=== PATIENT | male | born 1945 | race Caucasian/White ===

== ENCOUNTER 2017-02-10 16:55 | Emergency (ER) | payer MEDICARE, MEDICAID ==
[~2017-02-10] VITALS: Ht 177.8 cm; Wt 98.0 kg
[~2017-02-10 16:55] MED LIST: FER300 PO; GLIPIZIDE2.5 M1 PO; LAC PO; METOPROLOL TART25 M1 PO; PROAIR HFA0.09 MG/A1 INH; PROTONIX20 MG PO; PULMICORT180 MCG/Ac INH; REG5 PO; ZIT250 PO; ZOC20 PO
[2017-02-10 17:16] VITALS: BP 95/55
== END 2017-02-10 19:30 | disposition left against medical advice (07) ==
LOC: ED 16:55
DX: Z53.21 Procedure and treatment not carried out due to patient leaving prior to being seen by health care provider (principal)

== ENCOUNTER 2017-07-16 17:17 | Inpatient (IN) | payer OTHER, MEDICAID ==
[~2017-07-16] VITALS: Ht 172.7 cm; Wt 81.4 kg
[2017-07-16 18:06] LABS: BASOPHIL % 0.4 % (0-2); PLATELET COUNT 267 x10^3mcL (130-400)
[2017-07-16 18:08] LABS: RED CELL DISTRIBUTION WIDTH 18.8 % (11.5-14.5)
[2017-07-16 18:21] LABS: ALBUMIN 2.6 g/dL (3.4-5.0); ALKALINE PHOSPHATASE 142 U/L (46-116); ALT/SGPT 11 U/L (16-63); AST/SGOT 6 U/L (15-37); BILIRUBIN TOTAL 0.29 mg/dL (0.20-1.00); CALCIUM 9.2 mg/dL (8.5-10.1); CARBON DIOXIDE 18.5 mmol/L (21-32); CHLORIDE SERUM 101 mmol/L (98-107); CREATININE SERUM 3.2 mg/dL (0.7-1.3); POTASSIUM SERUM 4.3 mmol/L (3.5-5.1); SODIUM SERUM 133 mmol/L (136-145); TOTAL PROTEIN, SERUM 7.9 g/dL (6.4-8.2)
[2017-07-16 18:22] LABS: GLUCOSE SERUM 613 mg/dL (74-106)
[2017-07-16] MEDS ORDERED: TERAZOSIN HCL10 MG PO (19:55)
[2017-07-16] MEDS ORDERED: GLUCOTROL10 MG PO (19:55)
[2017-07-16] MEDS ORDERED: ATORVASTATIN CA40 M1 PO (19:56)
[2017-07-16] MEDS ORDERED: HYDROCHLOROTH12.5 M2 PO (19:56)
[2017-07-16] MEDS ORDERED: COUMADIN1 MG PO (19:57)
[2017-07-16] MEDS ORDERED: CILOSTAZOL100 M1 PO (19:57)
[2017-07-16] MEDS ORDERED: ATENOLOL100 MG PO (19:58)
[2017-07-16] MEDS ORDERED: ASPIRIN ADULT L81 M5 PO (19:58)
[2017-07-16] MEDS ORDERED: VENTOLIN H0.09 MG/A1 (19:59)
[2017-07-16] MEDS ORDERED: PREDNISOLONE ACE5 ML OP (19:59)
[2017-07-16] MEDS ORDERED: ILEVRO1.7 ML (19:59)
[2017-07-16] MEDS ORDERED: VIGAMOX3 ML (20:00)
[2017-07-16 20:09] LABS: MAGNESIUM 2.1 mg/dL (1.8-2.4); PHOSPHOROUS 3.7 mg/dL (2.5-4.9)
[2017-07-16 20:12] LABS: CHOLESTEROL/HDL RATIO 5.7
[2017-07-16 20:17] LABS: T3 TOTAL 0.82 ng/mL
[2017-07-16 20:25] VITALS: BP 149/92
[2017-07-16 20:34] LABS: FREE T4 1.09 ng/dL (0.76-1.46); FREE THYROXINE INDEX 2.1 ug/dL (1.4-4.5); T4(THYROXINE) 6.1 ug/dL (4.7-13.3)
[2017-07-16 20:46] VITALS: BP 149/92
[2017-07-16 22:50] LABS: microscopic required? YES; urine erythrocyte 1+ (NEGATIVE)
[2017-07-16 22:59] LABS: AMPHETAMINE QUAL UR NONE DETECTED (NEG <=1000)
[2017-07-17 00:37] LABS: CALCIUM 8.5 mg/dL (8.5-10.1); CARBON DIOXIDE 19.4 mmol/L (21-32); CHLORIDE SERUM 107 mmol/L (98-107); CREATININE SERUM 2.8 mg/dL (0.7-1.3); GLUCOSE SERUM 352 mg/dL (74-106); SODIUM SERUM 137 mmol/L (136-145)
[2017-07-17 05:16] VITALS: BP 136/75
[2017-07-17 06:26] LABS: CALCIUM 8.5 mg/dL (8.5-10.1); CHLORIDE SERUM 111 mmol/L (98-107); CREATININE SERUM 2.8 mg/dL (0.7-1.3); GLUCOSE SERUM 259 mg/dL (74-106); SODIUM SERUM 140 mmol/L (136-145)
[2017-07-17 06:42] LABS: BASOPHIL % 0.5 % (0-2); PLATELET COUNT 248 x10^3mcL (130-400); RED CELL DISTRIBUTION WIDTH 18.8 % (11.5-14.5)
[2017-07-17 09:02] VITALS: BP 146/77
[2017-07-17 13:03] VITALS: BP 125/64
[2017-07-17 17:35] VITALS: BP 172/70
[2017-07-17 18:08] VITALS: BP 131/74
[2017-07-17 20:38] VITALS: BP 148/76
[2017-07-18 05:29] VITALS: BP 112/52
[2017-07-18 08:44] VITALS: BP 120/66
[2017-07-18 13:03] VITALS: BP 146/72
[2017-07-18] MEDS ORDERED: ELIQUIS5 MG PO (13:37)
[2017-07-18] MEDS ORDERED: LEVAQUIN500 M1 PO (13:38)
[2017-07-18] MEDS ORDERED: LAC PO (13:38)
[2017-07-18] MEDS ORDERED: ATORVASTATIN CA40 M1 PO (15:12)
[2017-07-18] MEDS ORDERED: LEVEMIR100 U/M1 SQ (15:12)
[2017-07-18] MEDS ORDERED: HUMALOG100 U/ML SC ×2 (15:38→15:49)
[2017-07-18] MEDS ORDERED: APR10 PO (15:48)
== END 2017-07-18 17:25 | disposition home or self-care (01) | DRG 637 ==
LOC: ED 17:17 → EDBEDREQSVC 19:11 → EDBEDREQ 19:43 → EDBEDREQSVC 19:43 → EDBEDREQTM 19:43 → DU 19:43
PROVIDERS: Emergency Medicine; ADMIT Family Medicine
DX: E11.65 Type 2 diabetes mellitus with hyperglycemia (principal); G93.41 Metabolic encephalopathy; N17.0 Acute kidney failure with tubular necrosis; K85.90 Acute pancreatitis without necrosis or infection, unspecified; E43 Unspecified severe protein-calorie malnutrition; N39.0 Urinary tract infection, site not specified; I16.0 Hypertensive urgency; I12.9 Hypertensive chronic kidney disease with stage 1 through stage 4 chronic kidney disease, or unspecified chronic kidney disease; E11.22 Type 2 diabetes mellitus with diabetic chronic kidney disease; J44.9 Chronic obstructive pulmonary disease, unspecified; N40.0 Benign prostatic hyperplasia without lower urinary tract symptoms; D63.1 Anemia in chronic kidney disease; E78.5 Hyperlipidemia, unspecified; E03.9 Hypothyroidism, unspecified; E66.9 Obesity, unspecified; Z68.33 Body mass index [BMI] 33.0-33.9, adult; Z87.891 Personal history of nicotine dependence; Z86.718 Personal history of other venous thrombosis and embolism; Z79.84 Long term (current) use of oral hypoglycemic drugs; Z79.01 Long term (current) use of anticoagulants; Z79.82 Long term (current) use of aspirin; Z99.81 Dependence on supplemental oxygen
CPT/HCPCS: 83880; 84439; 90658; J0696; J1815; J7030; J7620; Q0092

== ENCOUNTER 2017-08-13 19:31 | Emergency (ER) | payer OTHER, MEDICAID ==
[~2017-08-13] VITALS: Ht 170.2 cm; Wt 95.2 kg
[2017-08-13 19:31] VITALS: Ht 170.2 cm; Wt 95.2 kg
[~2017-08-13 19:31] MED LIST changes: +APR10 PO; +ASPIRIN ADULT L81 M5 PO; +ATENOLOL100 MG PO; +ATORVASTATIN CA40 M1 PO; +CILOSTAZOL100 M1 PO; +COUMADIN1 MG PO; +ELIQUIS5 MG PO; +GLUCOTROL10 MG PO; +HUMALOG100 U/ML SC; +HYDROCHLOROTH12.5 M2 PO; +ILEVRO1.7 ML; +LEVAQUIN500 M1 PO; +LEVEMIR100 U/M1 SQ; +PREDNISOLONE ACE5 ML OP; +TERAZOSIN HCL10 MG PO; +VENTOLIN H0.09 MG/A1; +VIGAMOX3 ML
[2017-08-13 20:05] LABS: BASOPHIL % 0.7 % (0-2); PLATELET COUNT 227 x10^3mcL (130-400)
[2017-08-13 20:11] LABS: CALCIUM 8.3 mg/dL (8.5-10.1); CARBON DIOXIDE 19.9 mmol/L (21-32); CHLORIDE SERUM 111 mmol/L (98-107); CREATININE SERUM 2.4 mg/dL (0.7-1.3); GLUCOSE SERUM 233 mg/dL (74-106); POTASSIUM SERUM 4.1 mmol/L (3.5-5.1); SODIUM SERUM 144 mmol/L (136-145)
[2017-08-13 20:17] LABS: ALKALINE PHOSPHATASE 151 U/L (46-116); ALT/SGPT 14 U/L (16-63); AST/SGOT 9 U/L (15-37); TOTAL PROTEIN, SERUM 7.2 g/dL (6.4-8.2)
[2017-08-14 01:42] VITALS: BP 165/57
== END 2017-08-14 01:42 | disposition home or self-care (01) ==
LOC: ED 19:31
PROVIDERS: Emergency Medicine
DX: T38.3X1A Poisoning by insulin and oral hypoglycemic [antidiabetic] drugs, accidental (unintentional), initial encounter (principal); E11.9 Type 2 diabetes mellitus without complications; I10 Essential (primary) hypertension; E78.00 Pure hypercholesterolemia, unspecified; Z79.4 Long term (current) use of insulin; Z86.718 Personal history of other venous thrombosis and embolism; Y92.89 Other specified places as the place of occurrence of the external cause
CPT/HCPCS: J7042